=== PATIENT | male | born 1955 | race Caucasian/White ===

== ENCOUNTER 2018-03-05 10:26 | Inpatient (IN) | payer MEDICARE, OTHER ==
[2018-03-05 10:46] LABS: WHITE BLOOD COUNT 6.7 10^3/ul (4.8-10.8)
[2018-03-05 10:46] LABS: ADD MAN DIFF? NO; BASOPHILS % 0.6 % (0.0-2.0); EOSINOPHILS # 0.1 10^3/ul (0.0-0.5); EOSINOPHILS % 1.8 % (0.0-7.0); HEMATOCRIT 45.3 % (42.0-52.0); HEMOGLOBIN 14.6 g/dl (14.0-18.0); LYMPHOCYTES # 1.9 10^3/ul (0.8-2.9); MEAN CORPUSCULAR HEMOGLOBIN 28.1 pg (29.0-33.0); MEAN CORPUSCULAR HGB CONC 32.2 g/dl (32.0-37.0); MEAN CORPUSCULAR VOLUME 87.3 fl (82.0-101.0); MEAN PLATELET VOLUME 10.4 fl (7.4-10.4); MONOCYTE # 0.3 10^3/ul (0.3-0.9); MONOCYTES % 4.6 % (0.0-11.0); NEUTROPHIL # 4.3 10^3/ul (1.6-7.5); NEUTROPHILS % 64.7 % (39.0-77.0); PLATELET COUNT 160 10^3/UL (140-415); RED BLOOD COUNT 5.19 10^6/ul (4.70-6.10); RED CELL DISTRIBUTION WIDTH 12.8 % (11.5-14.5)
[2018-03-05 10:57] LABS: HEMOGLOBIN A1C 5.9 % (0-5.9)
[2018-03-05 11:04] LABS: ANION GAP 9 (5-13); BLOOD UREA NITROGEN 23 mg/dl (7-20); CALCIUM 9.8 mg/dl (8.4-10.2); CARBON DIOXIDE 29 mmol/L (21-31); CHLORIDE 103 mmol/L (97-110); CHOL/HDL RATIO 3.3 RATIO; CHOLESTEROL 138 mg/dl (100-200); CREATINE KINASE 142 IU/L (23-200); CREATININE 1.06 mg/dl (0.61-1.24); ETHANOL < 10.0 mg/dl (0-0); Estimated GFR > 60 mL/min (>60); GLUCOSE 115 mg/dl (70-220); HDL CHOLESTEROL 41 mg/dl (30-78); LDL CHOLESTEROL,CALCULATED 84 mg/dl; POTASSIUM 3.8 mmol/L (3.5-5.1); SODIUM 141 mmol/L (135-144); TRIGLYCERIDES 66 mg/dl (0-149)
[2018-03-05 11:09] LABS: PROTIME 20.1 Sec (11.9-14.9); PT RATIO 1.6
[2018-03-05 11:10] LABS: PARTIAL THROMBOPLASTIN TIME 39.8 Sec (23.0-35.0)
[2018-03-05 11:15] LABS: CK INDEX 3.1; TROPONIN-I < 0.012 ng/ml (0.000-0.120)
[2018-03-05 11:18] LABS: CK-MB 4.34 ng/ml (0.0-2.4)
[2018-03-05] MEDS: ASPIRIN 325 MG TAB PO (11:19)
[2018-03-05] MEDS ORDERED: morphine 2 MG INJ IV (13:00)
[2018-03-05] MEDS ORDERED: LORAZEPAM 2 MG INJ IV (13:00)
[2018-03-05] MEDS ORDERED: ACETAMINOPHEN 325 MG TAB PO (13:00)
[2018-03-05] MEDS ORDERED: HYDROCODONE/APAP (5/325) TAB PO (13:00)
[2018-03-05] MEDS ORDERED: hydrALAzine 20 MG INJ IV (13:00)
[2018-03-05] MEDS ORDERED: NITROGLYCERIN (SL) 0.4 MG TAB SL (13:00)
[2018-03-05] MEDS ORDERED: MAGNESIUM HYDROXIDE 30ML CUP PO (13:00)
[2018-03-05] MEDS ORDERED: DOCUSATE SODIUM 100 MG CAP PO (13:00)
[2018-03-05] MEDS ORDERED: ALBUTEROL/IPRATROPIUM (NEB) 3 ML AMP HHN (13:00)
[2018-03-05] MEDS ORDERED: ONDANSETRON 4 MG INJ IV (13:00)
[2018-03-05] MEDS ORDERED: NACL 0.9% 3 ML SYG IV (13:00)
[2018-03-05] MEDS: SOD CHLORIDE 0.45% 1,000 ML IV (13:33)
[2018-03-05 13:47] LABS: FREE T4 (FREE THYROXINE) 1.05 ng/dl (0.78-2.44)
[2018-03-05 15:11] LABS: CREATINE KINASE 121 IU/L (23-200)
[2018-03-05 15:22] LABS: CK INDEX 3.3; TROPONIN-I < 0.012 ng/ml (0.000-0.120)
[2018-03-05 15:26] LABS: CK-MB 3.98 ng/ml (0.0-2.4)
[2018-03-05 19:46] LABS: CREATINE KINASE 105 IU/L (23-200)
[2018-03-05 19:59] LABS: CK INDEX 3.2; TROPONIN-I < 0.012 ng/ml (0.000-0.120)
[2018-03-05 20:02] LABS: CK-MB 3.41 ng/ml (0.0-2.4)
[2018-03-05] MEDS: FAMOTIDINE 20 MG TAB PO (20:10)
[2018-03-06] MEDS: SOD CHLORIDE 0.45% 1,000 ML IV (02:39)
[2018-03-06 05:37] LABS: ADD MAN DIFF? NO
[2018-03-06 05:48] LABS: WHITE BLOOD COUNT 5.7 10^3/ul (4.8-10.8)
[2018-03-06 05:48] LABS: BASOPHILS % 0.5 % (0.0-2.0); EOSINOPHILS # 0.1 10^3/ul (0.0-0.5); EOSINOPHILS % 2.1 % (0.0-7.0); HEMATOCRIT 42.8 % (42.0-52.0); HEMOGLOBIN 13.9 g/dl (14.0-18.0); LYMPHOCYTES # 1.7 10^3/ul (0.8-2.9); LYMPHOCYTES % 29.5 % (15.0-51.0); MEAN CORPUSCULAR HEMOGLOBIN 28.2 pg (29.0-33.0); MEAN CORPUSCULAR HGB CONC 32.5 g/dl (32.0-37.0); MEAN CORPUSCULAR VOLUME 86.8 fl (82.0-101.0); MEAN PLATELET VOLUME 10.6 fl (7.4-10.4); MONOCYTE # 0.3 10^3/ul (0.3-0.9); MONOCYTES % 5.4 % (0.0-11.0); NEUTROPHIL # 3.6 10^3/ul (1.6-7.5); NEUTROPHILS % 62.3 % (39.0-77.0); PLATELET COUNT 163 10^3/UL (140-415); RED BLOOD COUNT 4.93 10^6/ul (4.70-6.10); RED CELL DISTRIBUTION WIDTH 12.9 % (11.5-14.5)
[2018-03-06 05:59] LABS: INR 1.05; PROTIME 13.8 Sec (11.9-14.9); PT RATIO 1.1
[2018-03-06 06:03] LABS: ANION GAP 6 (5-13); BLOOD UREA NITROGEN 22 mg/dl (7-20); CALCIUM 9.3 mg/dl (8.4-10.2); CARBON DIOXIDE 29 mmol/L (21-31); CHLORIDE 104 mmol/L (97-110); CHOL/HDL RATIO 3.5 RATIO; CHOLESTEROL 124 mg/dl (100-200); Estimated GFR > 60 mL/min (>60); GLUCOSE 88 mg/dl (70-220); HDL CHOLESTEROL 35 mg/dl (30-78); LDL CHOLESTEROL,CALCULATED 72 mg/dl; PHOSPHORUS 4.5 mg/dl (2.5-4.9); POTASSIUM 3.9 mmol/L (3.5-5.1); SODIUM 139 mmol/L (135-144); TRIGLYCERIDES 86 mg/dl (0-149)
[2018-03-06 07:28] LABS: THYROID STIMULATING HORMONE 0.155 MIU/L (0.465-4.680)
[2018-03-06] MEDS: FAMOTIDINE 20 MG TAB PO (08:23)
[2018-03-06] MEDS: ASPIRIN (EC) 325 MG TAB PO (08:23)
== END 2018-03-06 11:46 | disposition left against medical advice (07) | DRG 65 ==
LOC: E/R 10:26 → 6WM 11:13
PROVIDERS: Hospitalist
DX: I63.9 Cerebral infarction, unspecified (principal); G81.94 Hemiplegia, unspecified affecting left nondominant side; I69.954 Hemiplegia and hemiparesis following unspecified cerebrovascular disease affecting left non-dominant side; I10 Essential (primary) hypertension; I69.910 Attention and concentration deficit following unspecified cerebrovascular disease; F17.200 Nicotine dependence, unspecified, uncomplicated; E11.9 Type 2 diabetes mellitus without complications; R29.810 Facial weakness
CPT/HCPCS: 36415; 70450; 70551; 71045; 80048; 80061; 80307; 82550; 82553; 82962; 83036; 83735; 84100; 84439; 84443; 84484; 85025; 85610; 85730; 87081; 92523; 92610; 93005; 93306; 93880; 97161; 97165; 99285-25